=== PATIENT | female | born 1970 | race Caucasian/White ===

== ENCOUNTER 2016-11-15 15:47 | Emergency (ER) | payer MEDICAID ==
[2016-11-15 18:32] VITALS: BP 124/85
== END 2016-11-15 18:32 | disposition home or self-care (01) ==
LOC: ED 15:47
DX: M75.32 Calcific tendinitis of left shoulder (principal); E78.00 Pure hypercholesterolemia, unspecified
CPT/HCPCS: J1885

== ENCOUNTER 2020-02-15 12:40 | Emergency (ER) | payer BC, SELFPAY ==
[~2020-02-15] VITALS: Ht 157.5 cm; Wt 81.6 kg
[2020-02-15 13:00] VITALS: BP 142/106; Ht 157.5 cm; Wt 81.6 kg
== END 2020-02-15 14:48 | disposition home or self-care (01) ==
LOC: ED 12:40
DX: J06.9 Acute upper respiratory infection, unspecified (principal); E78.00 Pure hypercholesterolemia, unspecified
CPT/HCPCS: U0003-CS